=== PATIENT | female | born 1945 | race Caucasian/White ===

== ENCOUNTER → 2017-12-08 08:59 | Outpatient (BNVA) | payer MEDICARE, SELFPAY | PROVIDERS: PCP Family Medicine; Visit Provider Student in an Organized Health Care Education/Training Program | DX: I25.10 Atherosclerotic heart disease of native coronary artery without angina pectoris (principal); Z95.5 Presence of coronary angioplasty implant and graft; R05 Cough; I35.0 Nonrheumatic aortic (valve) stenosis; I10 Essential (primary) hypertension; E11.9 Type 2 diabetes mellitus without complications; Z79.4 Long term (current) use of insulin | CPT/HCPCS: 99214 ==

== ENCOUNTER 2017-12-21 02:15 | Outpatient (CLI) | payer MEDICARE, SELFPAY ==
[2017-12-21 11:02] LABS: CREATININE 0.91 mg/dL (0.55-1.02); Potassium 4.2 mmol/L (3.5-5.1)
[2017-12-21 11:10] LABS: Hemoglobin A1C 6.3 % (4.5-6.2)
[2017-12-21 11:21] LABS: Cholesterol 117 mg/dL (50-200); HDL Cholesterol 36 mg/dL (40-60); LDL CHOLESTEROL 68 mg/dL (<100); Triglyceride 96 mg/dL (30-150)
== END 2017-12-21 02:35 ==
PROVIDERS: Student in an Organized Health Care Education/Training Program; PCP Family Medicine; Visit Provider Family Medicine
DX: E11.9 Type 2 diabetes mellitus without complications (principal); I25.10 Atherosclerotic heart disease of native coronary artery without angina pectoris
CPT/HCPCS: 36415; 80061; 83721; 82565; 83036; 84132

== ENCOUNTER 2018-08-11 10:23 | Outpatient (CLI) | payer MEDICARE, SELFPAY ==
[2018-08-11 13:27] LABS: Hemoglobin A1C 9.3 % (4.5-6.2)
[2018-08-11 13:45] LABS: TSH (W/Ref FT4) 1.63 uIU/mL (0.358-3.74)
[2018-08-11 14:00] LABS: Microalb ug/mg Crea 17.8 ug/mg Cr
== END 2018-08-11 10:43 ==
PROVIDERS: PCP Family Medicine; Visit Provider Family Medicine
DX: E11.9 Type 2 diabetes mellitus without complications (principal); E03.9 Hypothyroidism, unspecified
CPT/HCPCS: 36415; 82043; 82570; 83036; 84443

== ENCOUNTER 2018-11-29 13:41 | Outpatient (REF) | payer MEDICARE, SELFPAY | END 2018-11-29 14:01 | LOC: LBN 13:41 | PROVIDERS: PCP Family Medicine; Visit Provider Obstetrics & Gynecology | DX: N76.0 Acute vaginitis (principal) | CPT/HCPCS: 87480; 87510; 87660 ==

== ENCOUNTER 2018-12-01 00:55 | Outpatient (CLI) | payer MEDICARE, SELFPAY ==
--- NOTE | 2018-12-01 09:40 | DI.MAMMO_ITS ---
SYMPTOMS/DIAGNOSIS: SCREENING, Z12.39 MAMMOGRAMS: Mammograms were interpreted according to the usual protocol including computer analysis with CAD system, tomosynthesis and C view imaging. The breasts are of moderate density with fairly symmetrical distribution of fibroglandular tissue. No dominant mass or clumped microcalcification is identified in either breast. Current examination is compared with the previous examination of September 2013 and there has been no gross interval change in appearance in comparison with the previous study. CONCLUSION: No specific evidence of malignancy at this time. Routine screening examinations are suggested at yearly intervals in this age group according to the ACS/ACR guidelines. Category 1, breast density category B. MQSA ASSESSMENT OF FINDINGS: Negative. Category 1. Patient will receive a letter notifying them of these results. BI-RADS category B. There are scattered areas of fibroglandular density.
== END 2018-12-01 01:15 ==
PROVIDERS: PCP Family Medicine; Visit Provider Obstetrics & Gynecology
DX: Z12.31 Encounter for screening mammogram for malignant neoplasm of breast (principal)
CPT/HCPCS: 77063; 77067

== ENCOUNTER → 2018-12-07 09:00 | Outpatient (BNVA) | payer MEDICARE, SELFPAY | PROVIDERS: PCP Family Medicine; Visit Provider Student in an Organized Health Care Education/Training Program | DX: I20.8 Other forms of angina pectoris (principal); Z95.5 Presence of coronary angioplasty implant and graft; I35.0 Nonrheumatic aortic (valve) stenosis; I10 Essential (primary) hypertension; E11.9 Type 2 diabetes mellitus without complications; Z79.4 Long term (current) use of insulin | CPT/HCPCS: 99214 ==

== ENCOUNTER 2018-12-30 08:36 | Outpatient (CLI) | payer MEDICARE, SELFPAY ==
[2018-12-30 11:05] LABS: CREATININE 1.26 mg/dL (0.55-1.02); Estimated GFR 41.51 (mL/min/1.73m2); Potassium 4.3 mmol/L (3.5-5.1)
[2018-12-30 11:45] LABS: Hemoglobin A1C 8.7 % (4.5-6.2)
== END 2018-12-30 08:56 ==
PROVIDERS: PCP Family Medicine; Visit Provider Family Medicine
DX: E11.9 Type 2 diabetes mellitus without complications (principal)
CPT/HCPCS: 36415; 82565; 83036; 84132

== ENCOUNTER 2019-07-26 11:03 | Outpatient (REF) | payer MEDICARE, SELFPAY | END 2019-07-26 11:23 | LOC: LBN 11:03 | PROVIDERS: PCP Family Medicine; Visit Provider Obstetrics & Gynecology | DX: B37.3 Candidiasis of vulva and vagina (principal) | CPT/HCPCS: 87480; 87510; 87660 ==

== ENCOUNTER 2019-08-30 10:54 | Outpatient (CLI) | payer MEDICARE, SELFPAY ==
--- NOTE | 2019-08-30 08:45 | DI.RAD_ITS ---
EXAM: XR HIP LT COMPLETE AP PELVIS CLINICAL HISTORY: bilateral hip pain. TECHNIQUE: 2D digital imaging was performed. COMPARISON: No exams were available for comparison FINDINGS: In the left hip, degenerative changes are present characterized by joint space narrowing, subchondral sclerosis and periarticular spurring. Similar findings are seen in the right hip. No acute fractur e or dislocation is present. Sacroiliac joints and symphysis pubis are intact. Vascular calcificati ons are seen in the soft tissues. IMPRESSION: Mild osteoarthritis of the hips bilaterally. DATA REPOSITORY: RADIATION DOSE DELIVERED:
== END 2019-08-30 11:14 ==
PROVIDERS: PCP Family Medicine; Referring Provider Family Medicine; Visit Provider Orthopaedic Surgery
DX: M25.551 Pain in right hip (principal); M25.552 Pain in left hip; M16.0 Bilateral primary osteoarthritis of hip; M70.61 Trochanteric bursitis, right hip; M70.62 Trochanteric bursitis, left hip; E11.9 Type 2 diabetes mellitus without complications; Z79.4 Long term (current) use of insulin; I10 Essential (primary) hypertension
CPT/HCPCS: 99203; 99214; 73502

== ENCOUNTER 2019-09-26 14:20 | Outpatient (REF) | payer MEDICARE, SELFPAY | END 2019-09-26 14:40 | LOC: LBN 14:20 | PROVIDERS: PCP Family Medicine; Visit Provider Obstetrics & Gynecology | DX: N89.8 Other specified noninflammatory disorders of vagina (principal) | CPT/HCPCS: 87480; 87510; 87660 ==

== ENCOUNTER → 2019-10-04 10:58 | Outpatient (BNVA) | payer MEDICARE, SELFPAY | PROVIDERS: PCP Family Medicine; Referring Provider Family Medicine; Visit Provider Orthopaedic Surgery | DX: M70.61 Trochanteric bursitis, right hip (principal); M70.62 Trochanteric bursitis, left hip; I10 Essential (primary) hypertension; E11.9 Type 2 diabetes mellitus without complications; Z79.4 Long term (current) use of insulin | CPT/HCPCS: 99213 ==

== ENCOUNTER 2019-11-13 00:42 | Outpatient (CLI) | payer MEDICARE, SELFPAY ==
--- NOTE | 2019-11-13 13:55 | DI.US_ITS ---
APPROVED REPORT EXAM: Comprehensive 2D, Doppler, and color-flow Echocardiogram Patient Location: Out-Patient Backhoe Operator: Wendy Guerrero RDCS (AE) Indications: Aortic Stenosis, CAD Other Information Study Quality: Adequate Conclusion Left Ventricle : The left ventricle is normal size. The left ventricular systolic function is normal. The left ventricular ejection fraction is within the normal range. There is normal left ventricular wall thickness. There is normal LV segmental wall motion. The left ventricular diastolic function is normal. LVEF is 54%. Right Ventricle : The right ventricle is normal size. The right ventricular systolic function is norm al. The RVSP is 22.1 mmHg. Atria : The left atrium size is normal. The right atrium size is normal. Aortic Valve : Aortic valve is calcified. Aortic valve is trileaflet. There is no aortic valvular vidal nosis. No aortic regurgitation is present. Mitral Valve : Mild mitral annular calcification. Trace to mild mitral regurgitation. No evidence of mitral valve stenosis. Great Vessels : The aortic root is normal in size. The ascending aorta is normal in size. Aortic arch is normal in caliber. Wall motion Left Ventricle The left ventricle is normal size. The left ventricular systolic function is normal. The left ventric ular ejection fraction is within the normal range. There is normal left ventricular wall thickness. T here is normal LV segmental wall motion. The left ventricular diastolic function is normal. There is no ventricular septal defect visualized. LVEF is 54%. Right Ventricle The right ventricle is normal size. The right ventricular systolic function is normal. The RVSP is 22 .1 mmHg. Atria The left atrium size is normal. The right atrium size is normal. The interatrial septum is intact wit h no evidence for an atrial septal defect. Aortic Valve Aortic valve is calcified. Aortic valve is trileaflet. There is no aortic valvular stenosis. No aorti c regurgitation is present. Mitral Valve Mild mitral annular calcification. No evidence of mitral valve stenosis. Trace to mild mitral regurgi tation. Tricuspid Valve The tricuspid valve is normal in structure. There is no tricuspid valve stenosis. Trace tricuspid reg urgitation. Pulmonic Valve The pulmonary valve is normal in structure. There is no pulmonic valvular stenosis. Trace pulmonic re gurgitation. Great Vessels The aortic root is normal in size. The ascending aorta is normal in size. Aortic arch is normal in ca liber. IVC is normal in size and collapses >50% with inspiration. Pericardium There is no pericardial effusion. 2D Dimensions IVSD d PLAX 0.95 cm F: 0.6-1.0 LV Vol A2C d MOD 66.7 mL LVPW d PLAX 0.95 cm F: 0.6 - 1.0 LV Vol A4C d MOD 80.1 mL LVID d PLAX 4.29 cm F: 3.8 - 5.2 LA vol/ BSA A2C s A-L 24.8 mL/m2 LVDs 3.10 cm F: 2.2 - 3.5 LA vol/ BSA A4C s A-L 18.0 mL/m2 Ao Root d 2.41 cm F: 2.7 - 3.3 LA Vol/ BSA Biplane s A-L 22.6 mL/m2 RA Area A4C 13.35 cm2 LA Area A4C s MOD 14.22 cm2 RA Vol/ BSA A4C s A-L 17.1 mL/m2 LA Area A2C s MOD 17.84 cm2 Ao Asc Diam d 3.07 cm F: 2.3 - 3.1 LV EF A4C MOD 54.0 % LV EF Teichholz 53.6 % LV EF A2C MOD 53.3 % LVEF (Parrish's) 53.33 % F: 54 - 74 LV EF Biplane MOD 53.3 % LV Volume 57.63 mL F: 46 - 106 SV 40.22 mL LV Volume Index 30.49 mL/m2 F: 29 - 61 SV Index 21.25 mL/m2 LV Vol Biplane MOD 75.4 mL FS 27.40 % M-Mode TAPSE 1.94 cm (M/F) >1.7 LV Diastology MV E' medial 0.060 (>0.07 m/s) E/A Ratio 0.9 LV E/e MED 13.85 (<14) MV E Vmax 0.84 (0.4-1.3 m/s) MV E' lateral 0.080 (>0.1 m/s) MV A Vmax 0.95 (0.4-1.3 m/s) LV E/e LAT 10.45 (<14) MV E/A Ratio 0.88 MV E/E' medial 13.86 MV E/E' lateral 10.47 Aortic Valve LVOT Area 3.37 cm2 AoV Area Vmax 1.58 cm2 LVOT Vmax 0.90 m/s AoV Area/ BSA (Vmax) 0.83 cm2/m2 LVOT Mean Luis. 0.64 m/s EVE Mean Luis. 1.41 cm2 LVOT Peak Grad 3.2 mmHg EVE Mean Luis. Index 0.74 cm2/m2 LVOT Mean Grad 1.8 mmHg LVOT VTI 0.207 m LVOT Diam s 2.05 cm AoV Vmax 1.92 m/s Velocity Ratio 0.46 AoV Mean Luis. 1.54 m/s AoV Peak Grad 14.8 mmHg LVOT SV 69.81 mL AoV Mean Grad 9.8 mmHg AoV VTI 0.474 m AoV Area VTI 1.47 cm2 AoV Area/ BSA (VTI) 0.78 cm/m2 Mitral Valve MV DT 232 (160-240 msec) MV PHT 67 msec MV Area PHT 3.27 cm2 Pulmonary Valve PV Vmax 0.95 (0.5-1.5 m/s) RVOT Peak Gr. 1.49 mmHg PV Peak Grad 3.6 mmHg RVOT Mean Gr. 0.85 mmHg PV Mean Grad 2.0 mmHg RVOT VTI 0.148 m PV VTI 0.224 m RVOT Vmax 0.61 m/s Tricuspid Valve TR Peak Grad 19.1 mmHg TR Vmax 2.19 m/s RA Pressure 3.00 mmHg RVSP (TR) 22.1 mmHg
== END 2019-11-13 01:02 ==
PROVIDERS: PCP Family Medicine; Visit Provider Internal Medicine Cardiovascular Disease
DX: I35.0 Nonrheumatic aortic (valve) stenosis (principal); I25.10 Atherosclerotic heart disease of native coronary artery without angina pectoris
CPT/HCPCS: 93306

== ENCOUNTER → 2019-12-04 10:56 | Outpatient (BNVA) | payer MEDICARE, SELFPAY | PROVIDERS: PCP Family Medicine; Visit Provider Internal Medicine Cardiovascular Disease | DX: I25.10 Atherosclerotic heart disease of native coronary artery without angina pectoris (principal); I35.0 Nonrheumatic aortic (valve) stenosis; I10 Essential (primary) hypertension; E11.9 Type 2 diabetes mellitus without complications; Z79.4 Long term (current) use of insulin | CPT/HCPCS: 99204; 99215 ==

== ENCOUNTER 2020-07-08 02:57 | Outpatient (CLI) | payer MEDICARE, SELFPAY ==
[2020-07-09 18:08] LABS: COVID-19 RT-PCR UVMMC Result Negative (Negative)
== END 2020-07-08 02:58 | disposition home or self-care (01) ==
LOC: LBO 02:58
PROVIDERS: PCP Family Medicine; Visit Provider Family Medicine
DX: Z20.822 Contact with and (suspected) exposure to COVID-19 (principal)
CPT/HCPCS: U0003; U0005

== ENCOUNTER → 2020-08-22 10:42 | Outpatient (BNVA) | payer MEDICARE, SELFPAY | PROVIDERS: PCP Family Medicine; Referring Provider Family Medicine; Visit Provider Student in an Organized Health Care Education/Training Program | DX: M70.61 Trochanteric bursitis, right hip (principal) | CPT/HCPCS: 20610; J1040 ==

== ENCOUNTER 2021-07-21 15:26 | Outpatient (CLI) | payer MEDICARE, SELFPAY ==
--- NOTE | 2021-07-21 14:45 | DI.RAD_ITS ---
Exam(s) XR KNEE RT 3V AP,LAT,TIO EXAM: XR KNEE RT 4V AP,LAT,TIO,PAT CLINICAL HISTORY: pain in knee. TECHNIQUE: 2D digital imaging was performed. Three views. COMPARISON: CR RIGHT KNEE LIMITED 1 OR 2 VIEW from 10/21/2011 FINDINGS: BONES: No acute fracture is present. No bony destructive lesion is seen. Patellar enthesophytes. Spu rring at articular aspect of patella. Mild spurring medial femoral tibial joint JOINTS: The knee is normally aligned. Minimal narrowing medial femoral tibial joint. No joint effus ion is seen. SOFT TISSUE: Vascular calcifications. Chondrocalcinosis projecting in region of menisci. IMPRESSION: Mild degenerative changes of the patellofemoral joint and medial femoral tibial joint. DATA REPOSITORY: RADIATION DOSE DELIVERED:
== END 2021-07-21 15:27 | disposition home or self-care (01) ==
LOC: DIORS 15:26
PROVIDERS: PCP Family Medicine; Referring Provider Family Medicine; Visit Provider Physician Assistant
DX: M25.561 Pain in right knee (principal)
CPT/HCPCS: 20610; 73562; J1040

== ENCOUNTER 2021-07-23 01:14 | Outpatient (CLI) | payer MEDICARE, SELFPAY ==
[2021-07-23 12:49] LABS: Anion Gap 11.6 mmol/L (3-11); BUN 22 mg/dL (7-18); CO2 24.4 mmol/L (21.0-32.0); Calcium 9.1 mg/dL (8.5-10.1); Calculated LDL 76 mg/dL (<100); Chloride 106 mmol/L (98-107); Cholesterol 134 mg/dL (<200); Estimated GFR 53.76 (mL/min/1.73m2); Glucose 174 mg/dL (74-106); HDL Cholesterol 44 mg/dL (40-60); Potassium 4.6 mmol/L (3.5-5.1); Sodium 142 mmol/L (136-145); Triglyceride 72 mg/dL (<150)
[2021-07-23 12:51] LABS: Hemoglobin A1C 7.5 % (<5.7)
== END 2021-07-23 01:15 | disposition home or self-care (01) ==
LOC: LOS 01:14
PROVIDERS: PCP Family Medicine; Visit Provider Family Medicine
DX: E78.5 Hyperlipidemia, unspecified (principal); E87.1 Hypo-osmolality and hyponatremia; R73.9 Hyperglycemia, unspecified
CPT/HCPCS: 36415; 80048; 80061; 83036

== ENCOUNTER 2021-08-11 06:30 | Day surgery (SDC) | payer MEDICARE, SELFPAY ==
[2021-08-11 06:35] VITALS: BP 170/65; PULSE 62; RESP 20; TEMP 36; O2SAT 100
--- NOTE | 2021-08-11 06:48 | ANES.PREOP_ITS ---
General Info Date of Service Date Performed: 08/11/21 Height: 5 ft 3.5 in Weight: 80.2 kg Body Mass Index (BMI): 30.8 Surgical Procedure: Operation Date: 08/11/21 07:40 Proposed Procedure Side Surgeon p Cataract Extraction with IOL Implant Left Guevara Zamora MD Meds Allergies and Home Medications Home Medication Medication Instructions Recorded aspirin 81 mg tablet,delayed 81 mg PO DAILY 07/29/12 release (Aspir-) nitroglycerin 0.4 mg sublingual 0.4 mg sublingual as direct 07/31/14 tablet blood sugar diagnostic (OneTouch #200 strips 07/03/16 Ultra Test strips) pen needle, diabetic 31 gauge x ##200 07/03/1603/24 blood sugar diagnostic (OneTouch #100 ea 07/24/20 Ultra Blue Test Strip) blood-glucose meter (Quantock BreweryTouch #1 ea 07/24/20 Ultra2 Meter) OneTouch UltraSoft Lancets #100 ea 10/18/20 (lancets) lancets 33 gauge (OneTouch Delica #100 ea 10/18/20 Lancets) insulin glargine 100 unit/mL (3 50 - 60 unit (0.5 - 0.6 mL) subcut 11/26/20 mL) subcutaneous pen (Basaglar DAILY #45 mL KwikPen U-100 Insulin) levothyroxine 75 mcg tablet 75 mcg PO DAILY #90 tab-caps 11/26/20 clobetasol 0.05 % topical cream 1 applic topical .COMPLEX #30 grams 12/11/20 citalopram 20 mg tablet (Celexa) 20 mg PO DAILY #90 tab-caps 12/25/20 metformin 500 mg tablet 500 mg PO BID #180 tabs 12/25/20 atorvastatin 40 mg tablet 40 mg PO DAILY #90 tab-caps 04/16/21 lisinopril 20 mg tablet 20 mg PO DAILY #90 tabs 07/14/21 zolpidem 5 mg tablet (Ambien) 5 mg PO hs prn #90 tab-caps 07/16/21 Current Visit Medications: Current Medications Generic Name Dose Route Start Last Admin Trade Name Freq PRN Reason Stop Dose Admin Acetaminophen 1,000 mg 08/11/21 06:00 Acetaminophen 500 Mg Tab PO Q4H PRN PRN Miscellaneous Medication 0 ml 08/11/21 06:00 Prednisolone 1%, Moxifloxacin 0.5%, Nepafenac 0.1% 5ml Btl OS DIRECTED [facility] Miscellaneous Medication 0 ml 08/11/21 06:00 Tropicam./Phenyleph. (1/2.5%) 5 Ml Btl OS DIRECTED [facility] Tetracaine HCl 0 ml 08/11/21 06:00 Tetracaine 0.5% 4 Ml Btl OS DIRECTED [facility] PFSH Active Problems Active Problems: Problem Status Onset Code Cortical cataract of left eye H26.9 Nuclear sclerotic cataract of left eye H25.12 Aortic valve stenosis 02/19/04 I35.0 Atrophic vaginitis 11/23/13 N95.2 CAD (coronary artery disease) I25.10 Diabetes mellitus 08/01/12 E11.9 Essential hypertension 12/19/12 I10 Hyperlipidemia 08/01/12 E78.5 Hypothyroidism 11/19/09 E03.9 Increased BMI R63.8 Diarrhea due to drug K52.1 Depression F32.9 Vaginal candidiasis B37.3 Bacterial vaginosis N76.0, B96.89 Greater trochanteric bursitis of both hips M70.61, M70.62 Vaginal discharge N89.8 Lichen sclerosus L90.0 Trochanteric bursitis, right hip M70.61 Osteoarthritis of right knee M17.11 Medical History Medical History Benign hypertension Depression Diabetes mellitus, type 2 History of tobacco use Hyperlipidemia Shoulder pain (10/25/12) left; MRI=no rotator cuff tear; AC arthritis Vaginal atrophy Surgical History Surgical History Dilation and curettage History of bilateral ligation of fallopian tubes History of shoulder surgery KNEE REPAIR (~06/2011) Injection. MINISCUS TRIM Ligation of fallopian tube shoulder surgery Status post dilation and curettage Status post knee surgery Status post tonsillectomy and adenoidectomy St[place]05/16[place] [facility] [place] [facility] [place] F/U with cardiology 12/04/19 Tonsillectomy and adenoidectomy Tobacco Smoking/Tobacco Use Status: Former Tobacco Use Passive smoking exposure: No Alcohol Alcohol Intake: current Alcohol intake frequency: holidays/special occasions only Alcohol type: wine Substance Use Substance use: Never Substance use type: does not use Prental History History 3 Para 2 Hx # Term Pregnancies Multiple births Hx # Pregnancies Ectopic pregnancies AB induced Hx Number of Living Children AB spontaneous Vital Signs and Lab Results Vital Signs Most Recent Vital Signs in EMR: Most Recent Vital Signs Temp Pulse Resp BP Pulse Ox 36.0 C L 62 20 170/65 H 100 08/11/21 06:35 08/11/21 06:35 08/11/21 06:35 08/11/21 06:35 08/11/21 06:35 Lab Results Blood Type / Crossmatch: No Data to Display Complete Blood Count: No Data to Display Complete Metabolic Panel: Sodium Level 142 mmol/L (136-145) 07/23/21 09:14 Potassium Level 4.6 mmol/L (3.5-5.1) 07/23/21 09:14 Chloride Level 106 mmol/L (98-107) 07/23/21 09:14 Carbon Dioxide Level 24.4 mmol/L (21.0-32.0) 07/23/21 09:14 Blood Urea Nitrogen 22 mg/dL (7-18) H 07/23/21 09:14 Creatinine 1.0 mg/dL (0.55-1.02) 07/23/21 09:14 Estimated GFR/1.73 m2 53.76 (mL/min/1.73m2) 07/23/21 09:14 Calcium Level 9.1 mg/dL (8.5-10.1) 07/23/21 09:14 Glucose Level 174 mg/dL (74-106) H 07/23/21 09:14 Hemoglobin A1c 7.5 % (<5.7) H 07/23/21 09:14 Liver Function Panel: No Data to Display Coagulation Panel: No Data to Display Cardiac Panel: No Data to Display Arterial Blood Gas: No Data to Display Venous Blood Gas: No Data to Display Pancreas Panel: No Data to Display Thyroid Panel: No Data to Display Infectious Disease: No Data to Display Blood Cultures: No Data to Display Toxicology Panel: No Data to Display Imaging and Studies Imaging and Studies Study information below may be from another EMR and interpreted by another provider. Please see original notes in EMR for more complete details. Stress Test Summary: Date of Exam: 10/07/16 Impressions: Normal study after maximal exercise without reproduction of symptoms. Summary: 1. Myocardial perfusion imaging: No myocardial perfusion defects noted. 2. The calculated left ventricular ejection fraction after stress: 50%. LV global systolic function is low normal. No left ventricular regional motion abnormality. 3. Stress ECG conclusions: Parra treadmill score: 7. This score predicts a low risk of cardiac events. 4. Stress: The target heart rate was achieved. There is a normal resting blood pressure with an appropriate response to stress. The patient experienced no chest pain during stress. Exercise capacity is above normal for age. Echocardiogram Summary: Date of Exam: 11/13/19ex: F Admission Date: 11/13/19 : 1945 Age: 74 Exam(s) a US:US echocardiogram APPROVED REPORT EXAM: Comprehensive 2D, Doppler, and color-flow Echocardiogram Patient Location: Out-Patient [employer]: Wendy Guerrero RDCS (AE) Indications: Aortic Stenosis, CAD Other Information Study Quality: Adequate Conclusion Left Ventricle : The left ventricle is normal size. The left ventricular systolic function is normal. The left ventricular ejection fraction is within the normal range. There is normal left ventricular wall thickness. There is normal LV segmental wall motion. The left ventricular diastolic function is normal. LVEF is 54%. Right Ventricle : The right ventricle is normal size. The right ventricular systolic function is normal. The RVSP is 22.1 mmHg. Atria : The left atrium size is normal. The right atrium size is normal. Aortic Valve : Aortic valve is calcified. Aortic valve is trileaflet. There is no aortic valvular stenosis. No aortic regurgitation is present. Mitral Valve : Mild mitral annular calcification. Trace to mild mitral regurgitation. No evidence of mitral valve stenosis. Great Vessels : The aortic root is normal in size. The ascending aorta is normal in size. Aortic arch is normal in caliber. Anesthesia Assessment and Plan Anesthesia History Personal History: No History of Anesthesia Complications Family History: No Family History of Anesthesia Complications Exercise Tolerance Exercise Tolerance: Metabolic Equivalents>4 Pertinent Negatives Pertinent Negatives: No Symptoms of GERD Cardiac & Pulmonary Exam Cardiac Exam: Normal S1/S2 Heart Sounds Pulmonary Exam: Clear Bilateral Breath Sounds Implantable Cardiac Device Does patient have a Pacemaker or an ICD?: No Airway Exam Known Difficult Airway: No Mallampati Class: 2 Mouth Opening: Normal (> 3cm) Thyromental Distance: Greater than 3 cm Neck Range of Motion: Full ROM Neck Circumference: Normal Teeth Condition: Removable Dentures/Plates Upper ASA Classification ASA Score: ASA 3 Emergency Case?: No NPO Status NPO Status: NPO Clears >2 hours, Solids >8 hours Anesthesia Plan Resuscitation Status: Full Code Anesthesia Technique: MAC Anesthesia Airway Planned: Natural Airway Monitors Used: Standard Monitors Preoperative Comments:: History of stents, 2 at [facility] and one at [facility] [place] [facility] [place]. Will look for those records.
[2021-08-11] MEDS: Tropicam./Phenyleph. (1/2.5%) 5 ML BTL OS ×3 (06:49→07:00)
[2021-08-11 07:20] VITALS: BMI 30.8
[2021-08-11] MEDS: Tetracaine 0.5% 4 ML BTL OS (07:36)
[2021-08-11] MEDS: Povidone-Iodine Ophth 30 ML BTL (07:40)
[2021-08-11] MEDS: Lidocaine 2% Jelly 6 ML SYR (07:43)
[2021-08-11] MEDS: Trypan Blue 0.06% 0.5 ML SYR (07:44)
[2021-08-11] MEDS: Balanced Salt Soln.-PLUS 500 ML BAG (07:44)
[2021-08-11] MEDS: Duovisc Viscoelastic System EACH 1 EACH (07:44)
[2021-08-11 08:15] VITALS: BP 139/63; PULSE 60; RESP 20; TEMP 36.2; O2SAT 99
--- NOTE | 2021-08-11 08:18 | PDOC.DSDIS_ITS ---
Discharge Plan Disposition Patient Disposition: HOME Condition: Good Discharge Details Attending Provider: Guevara Zamora Primary Care Provider: Milo Elkins. Home Meds and New Rx's Prescriptions: No Action (DME) blood-glucose meter [OneTouch Ultra2 Meter] [facility] [place] See Rx Instructions .ROUTE .MEDSUPPLY Qty: 1 0RF Rx Instructions: test once/day (DME) OneTouch Ultra Blue Test Strip Strip See Rx Instructions .ROUTE .MEDSUPPLY Qty: 100 3RF Rx Instructions: test once/day citalopram [Celexa] 20 mg tablet 20 mg PO DAILY Qty: 90 3RF metformin 500 mg tablet 500 mg PO BID Qty: 180 3RF Rx Instructions: note lower dose zolpidem [Ambien] 5 mg tablet 5 mg PO hs prn Qty: 90 1RF aspirin [Aspir-81] 81 MG tablet,delayed release (DR/EC) 81 mg PO DAILY nitroglycerin 0.4 MG tablet, sublingual 0.4 mg Sublingual as direct (DME) OneTouch Ultra Test 1 EACH strip 1 strip Miscellaneous BID Qty: 200 Rx Instructions: DX:E11.9 on insulin ULTRA 2 (DME) pen needle, diabetic 1 EACH needle 1 ndl SQ TID Qty: 200 Label Comments: Reports not taking per MD Rx Instructions: DX:250. B/D INSULIN PEN NEEDLE 31G X 3/16 (DME) lancets [OneTouch UltraSoft Lancets] [facility] [place] See Rx Instructions .MEDSUPPLY Qty: 100 4RF Rx Instructions: Check blood sugar daily (DME) lancets [OneTouch Delica Lancets] [facility] See Rx Instructions .ROUTE .MEDSUPPLY Qty: 100 3RF Rx Instructions: test once/day Basaglar KwikPen U-100 Insulin 100 unit/mL (3 mL) insulin pen 50 - 60 unit subcut DAILY Qty: 45 3RF levothyroxine 75 mcg tablet 75 mcg PO DAILY Qty: 90 4RF clobetasol 0.05 % cream 1 applic TP .COMPLEX Qty: 30 0RF Rx Instructions: 1 applic topical 3 times weekly at bedtime.; atorvastatin 40 mg tablet 40 mg PO DAILY Qty: 90 3RF lisinopril 20 mg tablet 20 mg PO DAILY Qty: 90 3RF Discharge Instructions Stand Alone Forms: Post-op Topical Cataract, Farnaz Gambino (DSU) Discharge Orders Discharge Orders: Discharge Order (Routine); Ordered 08/11/21 Ordered By: Guevara Zamora DS: Diagnosis Discharge Diagnosis (1) Cortical cataract of left eye: Status: Resolved (2) Nuclear sclerotic cataract of left eye: Status: Resolved
--- NOTE | 2021-08-11 08:19 | ROE_ITS ---
Date of service: 08/11/21 Time of Service: 07:19 Operative Note Operative Note DATE OF PROCEDURE: 08/11/21 PRE-OP DIAGNOSIS: Nuclear/cortical cataract, left eye Poor red reflex, left eye secondary to cataract POST-OP DIAGNOSIS: same PROCEDURE: Cataract extraction using phacoemulsification with intraocular lens implant, left eye, using capsular staining with Vision Blue SURGEON: Guevara Zamora ANESTHESIA TYPE: Local By Surgeon and MAC Refer to Anesthesia Record COMPLICATIONS: None Patient was transported to: same day Patient's condition: stable Implants: Jose and Jose / [employer] Tecnis [id number] Indications: Progressive decreased vision due to cataract, left eye, with poor red reflex Procedure Description: CATARACT SURGERY OPERATIVE REPORT PREOPERATIVE DIAGNOSIS: 1. Nuclear/cortical cataract, left eye 2. Poor red reflex secondary to #1 POSTOPERATIVE DIAGNOSIS: Same OPERATION: 1. Cataract extraction using phacoemulsification with posterior chamber intraocular lens implant, left eye. 2. Capsular staining with Vision Blue IOL: IOL Oracle Database Architect/Model: Jose & Jose / MANUEL Tecnis [id number] IOL Power: + 20.0 diopters IOL Serial Number: [id number] Optic Diameter: 6.0 mm Haptic/Overall Diameter: 13.0 mm PHACO INFO: Jamar Centurion Vision System with OZil and Active Fluidics Cumulative Dispersed Energy (CDE): 23.82 seconds SURGEON: Guevara Zamora MD, NAVIN ANESTHESIA: Monitored A [facility] ([facility] [place] with local sub-tenon's anesthetic infiltration COMPLICATIONS: None SPECIMENS: None INDICATIONS FOR PROCEDURE: The patient is a 76-year-old lady with history of left esotropia and amblyopia who has developed a significant nuclear and cortical cataract. She has pretty undergone cataract surgery elsewhere in the right eye. She now presents for cataract surgery in the left eye, understanding that postoperative visual acuity will be limited by the presence of her pre-existing amblyopia. PROCEDURE: The correct surgical eye was identified and marked as the left eye and the pupil was dilated in the preoperative area using mydriatics and cycloplegics. The dilated pupil size was 7.0 mm. She elected to proceed without oral sedation. The patient was brought to the operating room where cardiopulmonary monitoring was instituted and surgical time-out was performed, confirming the correct operative eye and IOL power. Topical anesthesia was administered and ophthalmic povidone-iodine 5% was instilled into the conjunctival fornices. Lidocaine gel was applied to the cornea and the henrry-ocular area was prepped with Betadine 10% solution and draped in the usual sterile fashion for intraocular surgery, including an aperture drape. A Tegaderm transparent film dressing was cut in half and used to cover the lashes and lid margins. Care was taken to sequester the lashes and lid margins under the Tegaderm dressing. A lid speculum was placed between the lids of the operative eye and the Jamar Lux[employer] Revalia operating microscope was maneuvered into position. Moira scissors were then used to make a conjunctival buttonhole approximately 6mm posterior to the limbus in the inferonasal quadrant. Blunt dissection was carried out to expose bare sclera, and a blunt-tipped sub-tenon?s anesthesia cannula was introduced and passed posteriorly along the globe where non- preserved plain lidocaine was injected into posterior sub-Tenon?s space. A sideport knife was used to make a paracentesis port superiorly/superiortemporally. Intraocular phenylephrine/lidocaine was injected int the anterior chamber.. Air was then injected into the anterior chamber, followed by Vision Blue, which was painted over the anterior capsule and then irrigated out using BSS. The anterior chamber was filled with viscoelastic. A 2.4 mm keratome knife was used to create a 2-plane near clear corneal tunnel extending approximately 2 mm into clear cornea temporally. A flap was raised on the anterior capsule and capsulorhexis forceps were used to complete a continuous curvilinear capsulorhexis of 4.8 mm. The anterior chamber was noted to be quite deep with a soft globe. Balanced salt solution was then used to perform cortical cleaving hydrodissection and nuclear hydrodelineation until the lens could be freely rotated within the capsular bag. The lens nucleus was then disassembled and removed within the capsular bag and iris plane using phacoemulsification. Nuclear splitters were used to aid in cracking the nucleus into 2 heminuclei. Residual cortical material was removed using the 45-degree angled silicone I/A tip with 0.3mm port. The posterior capsule was carefully polished to remove as much residual lens epithelial cells as safely possible. The capsular bag was then inflated and the anterior chamber deepened with viscoelastic. The lens implant described above was inserted into the capsular bag using the MANUEL [place] Injector. A Kuglen hook was used to dial the IOL into position. Residual viscoelastic was then removed first from posterior to the IOL, then from the anterior chamber using the I/A handpiece. The lens implant was noted to center nicely within the capsular bag. The incisions were stromally hydrated, and the anterior chamber was reformed using BSS. Then 0.5cc of moxifloxacin 1.0mg/ml were injected into the capsular bag and anterior chamber. The incisions were checked with a Weck spear and found to be secure. Several drops of ophthalmic povidone-iodine 5% were then applied to the eye followed by two drops of Imprimis combination prednisolone/moxifloxacin/nepafenac solution. The drapes were removed and a clear plastic protective eye shield was placed over the eye. The patient was then returned to Same Day Surgery in stable condition.
--- NOTE | 2021-08-11 08:35 | W.ANESPOSTOP ---
Postoperative Evaluation Date, Time and Location Date Performed: 08/11/21 Time Performed: 07:36 Patient Location: Day Surgery Unit Vital Signs Most Recent Imported Vital Signs: Most Recent Vital Signs Temp Pulse Resp BP Pulse Ox 36.2 C L 60 20 139/63 99 08/11/21 08:15 08/11/21 08:15 08/11/21 08:15 08/11/21 08:15 08/11/21 08:15 Pain Score Most Recent Pain Score: Most Recent Pain Score Pain Level 0 08/11/21 08:15 Assessment Mental Status: Awake (Alert & Oriented to Patient Baseline) Airway and Respiratory Function: Patent airway with normal (patient baseline) respiratory exam Cardiovascular Function: Hemodynamically Stable Hydration Status: Adequately Hydrated Nausea & Vomiting: No Nausea or Vomiting Pain: Pt. Denies Any Pain Peripheral Nerve Block: Patient did not receive a nerve block
== END 2021-08-11 08:45 | disposition home or self-care (01) ==
PROVIDERS: PCP Family Medicine; Visit Provider Ophthalmology
PROC: (CPT 66984; principal; 2021-08-11 07:30)
DX: H25.12 Age-related nuclear cataract, left eye (principal); E11.9 Type 2 diabetes mellitus without complications; Z79.84 Long term (current) use of oral hypoglycemic drugs; Z79.4 Long term (current) use of insulin; I10 Essential (primary) hypertension
CPT/HCPCS: 66984; V2632

== ENCOUNTER → 2021-09-15 13:38 | Outpatient (BNVA) | payer MEDICARE, SELFPAY | PROVIDERS: PCP Family Medicine; Referring Provider Family Medicine; Visit Provider Student in an Organized Health Care Education/Training Program | DX: M70.51 Other bursitis of knee, right knee (principal) | CPT/HCPCS: 20610; J1030 ==

== ENCOUNTER 2022-08-04 03:02 | Outpatient (CLI) | payer MEDICARE, SELFPAY ==
[2022-08-04 13:00] LABS: Hemoglobin A1C 9.9 % (<5.7)
[2022-08-04 13:13] LABS: Anion Gap 13.3 mmol/L (3-11); BUN 29 mg/dL (7-18); CO2 22.7 mmol/L (21.0-32.0); CREATININE 1.3 mg/dL (0.55-1.02); Calcium 9.5 mg/dL (8.5-10.1); Calculated LDL 56 mg/dL (<100); Chloride 104 mmol/L (98-107); Cholesterol 113 mg/dL (<200); Estimated GFR 42.09 (mL/min/1.73m2); Glucose 219 mg/dL (74-106); HDL Cholesterol 36 mg/dL (40-60); Potassium 4.5 mmol/L (3.5-5.1); Sodium 140 mmol/L (136-145); Triglyceride 107 mg/dL (<150)
== END 2022-08-04 03:03 | disposition home or self-care (01) ==
LOC: LOS 03:02
PROVIDERS: PCP Family Medicine; Visit Provider Family Medicine
DX: E87.1 Hypo-osmolality and hyponatremia (principal); E78.5 Hyperlipidemia, unspecified; E11.51 Type 2 diabetes mellitus with diabetic peripheral angiopathy without gangrene; I70.209 Unspecified atherosclerosis of native arteries of extremities, unspecified extremity; E03.9 Hypothyroidism, unspecified
CPT/HCPCS: 36415; 80048; 80061; 83036; 84443

== ENCOUNTER 2023-07-14 10:48 | Outpatient (CLI) | payer MEDICARE, SELFPAY ==
--- NOTE | 2023-07-14 10:30 | DI.RAD_ITS ---
Exam(s) XR SHOULDER RT COMPLETE 2+V EXAM: XR SHOULDER RT COMPLETE 2+V CLINICAL HISTORY: RIGHT SHOULDER PAIN. TECHNIQUE: 2D digital imaging was performed of the right shoulder. Two images were obtained. Grash ey and axillary views were obtained. COMPARISON: CR RIGHT SHOULDER COMPLETE from 07/25/2014 FINDINGS: BONES: No acute fracture is present. No bony destructive lesion is seen. JOINTS: No dislocation present. There are degenerative changes seen at the acromioclavicular joint. The glenohumeral joint is well maintained. SOFT TISSUE: The visualized lungs are clear. IMPRESSION: Degenerative changes of the AC joint. DATA REPOSITORY: RADIATION DOSE DELIVERED:
== END 2023-07-14 10:49 | disposition home or self-care (01) ==
LOC: DIORS 10:48
PROVIDERS: PCP Family Medicine; Referring Provider Family Medicine; Visit Provider Student in an Organized Health Care Education/Training Program
DX: M75.101 Unspecified rotator cuff tear or rupture of right shoulder, not specified as traumatic; M65.341 Trigger finger, right ring finger; M72.0 Palmar fascial fibromatosis [Dupuytren]; M18.11 Unilateral primary osteoarthritis of first carpometacarpal joint, right hand
CPT/HCPCS: 20610; J1010; 73030

== ENCOUNTER 2023-08-12 09:20 | Day surgery (SDC) | payer MEDICARE, SELFPAY ==
--- NOTE | 2023-08-12 07:13 | W.PM.DSUDISC ---
Date of service: 08/12/23 Time of Service: 14:00 Discharge Plan Disposition Patient Disposition: Home Condition: Stable Discharge Details Attending Provider: Esau Walsh Primary Care Provider: Milo Elkins Home Meds and New Rx's Prescriptions: Continued aspirin [Aspir-81] 81 MG tablet,delayed release (DR/EC) 81 mg PO DAILY nitroglycerin 0.4 MG tablet, sublingual 0.4 mg Sublingual as direct (DME) OneTouch Ultra Test 1 EACH strip 1 strip Miscellaneous BID Qty: 200 Rx Instructions: DX:E11.9 on insulin ULTRA 2 (DME) lancets [OneTouch UltraSoft Lancets[place] [facility] [place] .MEDSUPPLY Qty: 100 4RF Rx Instructions: Check blood sugar daily (DME) lancets [OneTouch Delica Lancets] 33 gauge misc See Rx Instructions .ROUTE .MEDSUPPLY Qty: 100 3RF Rx Instructions: test once/day metformin 500 mg tablet 500 mg PO BID Qty: 180 3RF Rx Instructions: note lower dose lisinopril 20 mg tablet 20 mg PO DAILY Qty: 90 3RF (DME) blood sugar diagnostic Strip See Rx Instructions .ROUTE .MEDSUPPLY Qty: 100 3RF Rx Instructions: test once/day (DME) pen needle, diabetic 31 gauge x 1/3 needle 1 ndl SQ TID Qty: 200 3RF Rx Instructions: DX:250. B/D INSULIN PEN NEEDLE 31G X 3/16 test twice/day (DME) blood-glucose meter [OneTouch Ultra2 Meter] [facility] [place] .ROUTE .MEDSUPPLY Qty: 1 0RF Rx Instructions: test once/day citalopram [Celexa] 20 mg tablet 20 mg PO DAILY Qty: 90 3RF insulin glargine [Basaglar KwikPen U-100 Insulin] 100 unit/mL (3 mL) insulin pen 50 - 60 unit subcut DAILY Qty: 45 3RF levothyroxine 75 mcg tablet 75 mcg PO DAILY Qty: 90 4RF zolpidem [Ambien] 5 mg tablet 5 mg PO hs prn Qty: 90 1RF atorvastatin 40 mg tablet 40 mg PO DAILY Qty: 90 3RF Discharge Instructions Additional Instructions: Surgery: Right ring finger trigger release Activity: Protect hand for a few weeks. Gently increase finger motion and hand gripping to prevent stiffness. Recommend elevation to minimize swelling and discomfort. Prescriptions: None Resume home medicines, use [id number]-ijwcduc Tylenol (acetaminophen) as needed for mild pain and ibuprofen (Motrin) or naproxen (Aleve) as needed for moderate to severe pain and swelling. Dressings: Leave dressing in place for 3 days. May then remove and leave open to air or cover incision with Band-Aid. May get wet after 5 days. Follow-up: 10-[address] Walsh Please call the office during business hours with any questions or concerns. Stand Alone Forms: Farnaz Gambino (DSU) Discharge Orders Discharge Orders: Discharge Order (Routine); Ordered 08/12/23 Ordered By: Alan Reynolds DS: Diagnosis Discharge Diagnosis (1) Trigger finger, right ring finger: Status: Acute
--- NOTE | 2023-08-12 07:26 | ROE_ITS ---
Date of service: 08/12/23 Time of Service: 11:00 Operative Note Operative Note DATE OF PROCEDURE: 08/12/23 PRE-OP DIAGNOSIS: Right ring trigger finger PROCEDURE: Right ring finger trigger release, CPT# 74704 SURGEON: Esau Walsh GEOTECHNICAL INTERN: None None ANESTHESIA TYPE: Local By Surgeon Refer to Anesthesia Record ESTIMATED BLOOD LOSS: 1 TOURNIQUET TIME: 0 COMPLICATIONS: None Patient was transported to: same day Patient's condition: stable Indications: Please see complete medical record for details. Procedure Description: In the operating room, the patient was positioned supine on the stretcher. All bony prominences were padded. Preoperative antibiotics were omitted. The correct patient, procedure, and side of the procedure were all verified prior to beginning. Local anesthesia was induced about the site with 10cc of 1% lidocaine containing epinephrine buffered with 1 cc of sodium bicarbonate. The Right hand was prepped and draped in the usual sterile fashion. Proper analgesia was confirmed. A small volar longitudinal approach was made overlying the ring finger MCP joint. Soft tissues were swept to the sides, some mild subcutaneous skin to tendon sheath likely Dupuytren's contracture was released, and retracted to expose the A1 jaden. The release was started centrally with a knife and completed at the proximal and distal margins with tenotomy scissors. Care was taken to protect the flexor tendons. The tendons were inspected and showed mild bulbous degeneration and moderate tenosynovitis, but no significant tearing. Appropriate flexor tendon excursion was confirmed. The patient readily demonstrated full range of motion of the finger without triggering. The small incision was irrigated and then dried. Hemostasis was appropriate. The incision was closed using 3-0 nylon in a horizontal mattress fashion. Xeroform was applied followed by gauze and the hand was gently compressed with an Andre bandage. The patient tolerated local anesthesia without complication and was transferred out of the operating room in a stable condition.
[2023-08-12 10:09] VITALS: BP 122/58; PULSE 63; RESP 18; TEMP 36.3; O2SAT 99
[2023-08-12] MEDS: Sodium Bicarbonate 50 MEQ/50 ML VIAL (11:21)
[2023-08-12] MEDS: Lidocaine 1% Multi-Dose W/EPI 1/100,000 50 ML VIAL (11:21)
[2023-08-12 11:35] VITALS: BP 125/59; PULSE 58; RESP 18; TEMP 36.1; O2SAT 100
== END 2023-08-12 11:56 | disposition home or self-care (01) ==
LOC: SUR 09:20
PROVIDERS: PCP Family Medicine; Visit Provider Student in an Organized Health Care Education/Training Program
PROC: (CPT 26055; principal; 2023-08-12 10:45)
DX: M65.341 Trigger finger, right ring finger (principal)
CPT/HCPCS: 26055; J2004

== ENCOUNTER → 2023-08-24 10:29 | Outpatient (BNVA) | payer MEDICARE, SELFPAY | PROVIDERS: PCP Family Medicine; Referring Provider Family Medicine; Visit Provider Student in an Organized Health Care Education/Training Program | DX: Z47.89 Encounter for other orthopedic aftercare (principal); M65.341 Trigger finger, right ring finger; M72.0 Palmar fascial fibromatosis [Dupuytren] ==

== ENCOUNTER → 2023-09-24 00:31 | Outpatient (CLI) | payer MEDICARE, SELFPAY ==
--- NOTE | 2023-09-24 06:30 | DI.MRI_ITS ---
Exam(s) MR UPPER JOINT RT WO EXAM: MR UPPER JOINT RT WO CLINICAL HISTORY: RIGHT SHOULDER PAIN, ROTATOR CUFF TEAR ARTHROPATHY RT SHOULDER TECHNIQUE: Multiplanar multisequence MRI of the shoulder was performed. COMPARISON: CR XR SHOULDER RT COMPLETE 2+V from 07/14/2023 FINDINGS: MARROW:There is no evidence of fracture, Hill-Sachs deformity, nor ominous osseous lesions. GLENOHUMERAL JOINT: No joint effusion nor obvious loose intra-articular bodies. No chondral defects. No osteophytes. No degenerative subarticular cysts. ROTATOR CUFF MECHANISM: AC JOINT/ACROMIUM: Moderate degenerative changes in the AC joint. Mild impingement noted at this lev el.. There is no evidence of os acromiale. Supraspinatus: Exhibits tendinitis-tendinosis signal and there is an area of full-thickness tearing a t conjoined insertional region. Some fluid is noted in the subacromial-subdeltoid bursa. No muscle atrophy. Infraspinatus: Exhibits tendinitis signal with tearing as above at the conjoint insertional region. No muscle atrophy. Teres Minor: Intact. No evidence of tear nor muscle atrophy. Subscapularis/anterior cuff: Exhibits thickening and tendinosis signal. No full-thickness tear. BICEPS TENDON: Exhibits normal position within the intertubercular groove. However, the intra-articu lar aspect of the tendon is attenuated. No tenosynovitis. LABRUM: No labral tear identified. No evidence of paralabral cyst. QUADRILATERAL SPACE: No evidence of mass in the region of the axillary nerve and dorsal circumflex hu meral vessels. Visualized triceps muscle at this level appears unremarkable. IMPRESSION: 1. There is significant tendinitis/tendinosis findings in the supraspinatus, infraspinatus, and subsc apularis. There is an area of full-thickness tearing of the rotator cuff tendon at the conjoined ins ertional aspect of the supra and infraspinatus. No significant retraction of the musculotendinous ju nctions. No muscle atrophy. There is some fluid in the subacromial-subdeltoid bursa. 2. There is significant thinning of the intra-articular aspect of the biceps tendon. The thickness o f the tendon within the intra-articular groove appears normal and nondisplaced. 3. No obvious labral tears. 4. Moderate degenerative changes noted in the acromioclavicular joint. DATA REPOSITORY:
== END ==
PROVIDERS: PCP Family Medicine; Visit Provider Student in an Organized Health Care Education/Training Program
DX: M75.101 Unspecified rotator cuff tear or rupture of right shoulder, not specified as traumatic (principal); M12.811 Other specific arthropathies, not elsewhere classified, right shoulder
CPT/HCPCS: 73221

== ENCOUNTER → 2023-10-05 10:48 | Outpatient (BNVA) | payer MEDICARE, SELFPAY | PROVIDERS: PCP Family Medicine; Referring Provider Family Medicine; Visit Provider Student in an Organized Health Care Education/Training Program | DX: M75.101 Unspecified rotator cuff tear or rupture of right shoulder, not specified as traumatic (principal); M12.811 Other specific arthropathies, not elsewhere classified, right shoulder | CPT/HCPCS: 20610; J1010 ==

== ENCOUNTER 2024-08-09 02:55 | Outpatient (CLI) | payer MEDICARE, SELFPAY ==
[2024-08-09 12:19] LABS: HCT 40.5 % (36.0-46.0); HGB 13.5 g/dL (11.2-15.7); MCH 28.1 pg (27.0-33.0); MCHC 33.3 % (32.0-36.0); MCV 84 fL (80-95); MPV 11.6 fL (8.0-11.0); Platelet Count 167 10^3/uL (130-400); RDW 13.8 % (11.7-14.6); RDW-SD 42.6 fL; WBC 10.55 10^3/uL (4.4-10.8)
[2024-08-09 12:45] LABS: Anion Gap 10.5 mmol/L (3-11); BUN 29 mg/dL (7-18); CO2 23.5 mmol/L (21.0-32.0); CREATININE 1.3 mg/dL (0.55-1.02); Calcium 9.6 mg/dL (8.5-10.1); Chloride 105 mmol/L (98-107); Estimated GFR 41.57 (mL/min/1.73m2); Glucose 168 mg/dL (74-106); Potassium 4.3 mmol/L (3.5-5.1); Sodium 139 mmol/L (136-145); TSH (W/Ref FT4) 3.69 uIU/mL (0.36-3.74)
== END 2024-08-09 02:56 | disposition home or self-care (01) ==
PROVIDERS: PCP Family Medicine; Visit Provider Family Medicine
DX: E03.9 Hypothyroidism, unspecified (principal); E87.1 Hypo-osmolality and hyponatremia; R53.83 Other fatigue
CPT/HCPCS: 36415; 80048; 85027; 84443

== ENCOUNTER → 2024-08-23 12:55 | Outpatient (BNVA) | payer MEDICARE, SELFPAY | PROVIDERS: PCP Family Medicine; Referring Provider Family Medicine; Visit Provider Student in an Organized Health Care Education/Training Program | DX: M75.101 Unspecified rotator cuff tear or rupture of right shoulder, not specified as traumatic (principal); M19.011 Primary osteoarthritis, right shoulder; E11.59 Type 2 diabetes mellitus with other circulatory complications; I10 Essential (primary) hypertension | CPT/HCPCS: 99214 ==

== ENCOUNTER 2024-09-04 00:21 | Outpatient (CLI) | payer MEDICARE, SELFPAY ==
--- NOTE | 2024-09-04 14:42 | DI.CT_ITS ---
Exam(s) CT UPPER EXTREMITY RT WO EXAM: CT UPPER EXTREMITY RT WO CLINICAL HISTORY: SURGICAL PLANNING,ROTATOR CUFF TEAR, ARTHROPATHY,M75.101,M12.811. TECHNIQUE: Imaging Protocol: Axial computed tomography images with coronal and sagittal reformatted images were created and reviewed. COMPARISON: CR XR SHOULDER RT COMPLETE 2+V from 07/14/2023 FINDINGS: Bones: There is no evidence of fracture or dislocation. Bony alignment is satisfactory. No cellulitic or osteomyelitic changes are identified. No lytic or sclerotic lesions are identified. Joints: The AC joint shows mild spurring. There is spurring at the tip of the acromion. There is mild spurring at the greater tuberosity. There is mild narrowing of the glenohumeral joint space and mild spurring at the glenoid. Soft Tissues: Normal. No significant muscle atrophy. IMPRESSION: Jbru-ep-hlvstxhu degenerative changes of the AC joint and glenohumeral joint. RADIATION DOSE DELIVERED: Total DLP Total DLP DATA REPOSITORY: All CT scans at this facility are submitted to the National Radiology Data Registry (NRDR) Dose Index Registry (DIR) with the [employer] (ACR). RADIATION OPTIMIZATION: All CT scans at this facility use at least one of these dose optimization techniques: automated exposure control; mA and/or kV adjustment per patient size (includes targeted exams where dose is matched to clinical indication); or iterative reconstruction.
== END 2024-09-04 00:41 ==
LOC: DI 00:22
PROVIDERS: PCP Family Medicine; Visit Provider Student in an Organized Health Care Education/Training Program
DX: M19.011 Primary osteoarthritis, right shoulder (principal)
CPT/HCPCS: 73200

== ENCOUNTER → 2024-09-13 08:52 | Outpatient (BNVA) | payer MEDICARE, SELFPAY | PROVIDERS: PCP Family Medicine; Referring Provider Family Medicine; Visit Provider Student in an Organized Health Care Education/Training Program | DX: M75.101 Unspecified rotator cuff tear or rupture of right shoulder, not specified as traumatic (principal); M19.011 Primary osteoarthritis, right shoulder; E11.9 Type 2 diabetes mellitus without complications | CPT/HCPCS: 99214 ==

== ENCOUNTER → 2024-10-11 08:37 | Outpatient (BNVA) | payer MEDICARE, SELFPAY | PROVIDERS: PCP Family Medicine; Referring Provider Family Medicine; Visit Provider Student in an Organized Health Care Education/Training Program | DX: M75.101 Unspecified rotator cuff tear or rupture of right shoulder, not specified as traumatic (principal); M19.011 Primary osteoarthritis, right shoulder; E11.9 Type 2 diabetes mellitus without complications | CPT/HCPCS: 99214 ==

== ENCOUNTER 2024-10-26 05:52 | Day surgery (SDC) | payer MEDICARE, SELFPAY ==
[2024-10-26] VITALS (30 sets, daily range): BP systolic 93–154; BP diastolic 24–77; PULSE 49–90; RESP 15–26; TEMP 36–36.5; O2SAT 91–100; BMI 30.9
[2024-10-26] MEDS: Lactated Ringers 1,000 ML 30 ML IV (06:50)
--- NOTE | 2024-10-26 06:59 | ANES.PREOP_ITS ---
General Info Date of Service Date Performed: 10/26/24 Height: 5 ft 3 in Weight: 79.1 kg Body Mass Index (BMI): 30.9 Surgical Procedure: Operation Date: 10/26/24 07:40 Proposed Procedure Side Surgeon p Shoulder Reverse Total Arthroplasty, Biceps Tenodesis, Distal Clavicle Excision Right Esau Walsh MD Meds Allergies and Home Medications Allergies Allergy/AdvReac Type Severity Reaction Status Date / Time No Known Allergies Allergy Verified 10/26/24 06:10 Home Medication ?Medication ?Instructions ?Recorded aspirin 81 mg tablet,delayed 81 mg PO DAILY 07/29/12 release (Aspir-) nitroglycerin 0.4 mg sublingual 0.4 mg sublingual as d irect 07/31/14 tablet blood sugar diagnostic (OneTouch #200 strips 07/03/16 Ultra Test strips) OneTouch UltraSoft Lancets #100 ea 10/18/20 (lancets) lancets 33 gauge (OneTouch Delica #100 ea 10/18/20 Lancets) blood sugar diagnostic #100 ea 08/24/22 pen needle, diabetic 31 gauge x ##200 08/24/2203/24 blood-glucose meter (OneTouch #1 ea 08/26/22 Ultra2 Meter) atorvastatin 40 mg tablet 40 mg PO DAILY #90 tab-caps 07/27/24 losartan 50 mg tablet 50 mg PO DAILY #90 tabs 0511/13 nitroglycerin 0.4 mg sublingual 0.4 mg sublingual ONCE #10 tabs 07/27/24 tablet citalopram 20 mg tablet (Celexa) 20 mg PO DAILY #90 ta b-caps 09/28/24 levothyroxine 75 mcg tablet 75 mcg PO DAILY #90 tab-ca ps 09/28/24 blood-glucose sensor (FreeStyle #1 ea 10/05/24 Mechelle 3 Plus Sensor device) zolpidem 5 mg tablet (Ambien) 5 mg PO hs prn #90 tab-c aps 10/10/24 insulin degludec 100 unit/mL (3 20 - 30 unit subcut QA M 10/24/24 mL) subcutaneous pen (Tresiba FlexTouch U-100 insulin) metformin 1,000 mg tablet 250 mg PO BID 10/24/24 naproxen 250 mg tablet 250 - 500 mg (1 - 2 x 250 mg ) PO 10/26/24 BID PRN moderate pain and swelling #20 tabs tramadol 50 mg tablet 50 mg PO Q8H PRN severe pain #12 10/26/24 tabs Current Visit Medications: Current Medications Generic Name Dose Route Start Last Admin Trade Name Myla PRN Reason Stop Dose Admin Ringer's Solution 1,000 mls @ 30 mls/hr 10/26/24 06:00 10/26/24 06:50 IV 11/24/24 23:59 30 mls/hr INFUSION TOMAS Administration Cefazolin Sodium/Dextrose 2 gm in 50 mls @ 100 mls/hr 10/26/24 06:00 Ancef Duplex IVPB 11/24/24 23:59 PREOP TOMAS Tranexamic Acid/Sodium Chloride 1,000 mg in 100 mls @ 600 mls/hr 10/26/24 06:00 IVPB 11/24/24 23:59 PREOP TOMAS IV Miscellaneous Supplies 1 each 10/26/24 06:00 Iv Access IV 11/24/24 23:59 DIRECTED TOMAS Sodium Chloride 0 ml 10/26/24 06:00 Normal Saline Flush 10 Ml Syr IV 11/24/24 23:59 PRN PRN Sodium Chloride 0 ml 10/26/24 06:00 Normal Saline 10 Ml Vial IJ 11/24/24 23:59 DIRECTED PRN Sterile Water 0 ml 10/26/24 06:00 Water,Injection,Sterile 10 Ml Vial IJ 11/24/24 23:59 DIRECTED PRN PFSH Active Problems Active Problems: Problem Status Onset Code Arthritis of right acromioclavicular joint Acute M19.011 Seborrheic keratoses Acute L82.1 Rotator cuff tear arthropathy Acute M75.100, M12.819 Arthritis of carpometacarpal (CMC) joint of right thumb Acute M18.11 Dupuytren's contracture of right hand Acute M72.0 Trigger finger, right ring finger Acute M65.341 Rotator cuff tear arthropathy of right shoulder Acute M75.101, M12.811 Hip pain, right Acute M25.551 Shoulder pain, right Acute M25.511 Sensorineural hearing loss, bilateral Acute H90.3 Hearing loss Acute H91.90 Pes anserine bursitis Acute M70.50 Cortical cataract of left eye Resolved H26.9 Nuclear sclerotic cataract of left eye Resolved H25.12 Aortic valve stenosis Acute 02/19/04 I35.0 Atrophic vaginitis Acute 11/23/13 N95.2 CAD (coronary artery disease) Acute I25.10 Diabetes mellitus Chronic 08/01/12 E11.9 Essential hypertension Acute 12/19/12 I10 Hyperlipidemia Acute 08/01/12 E78.5 Hypothyroidism Acute 11/19/09 E03.9 Increased BMI Acute R63.8 Diarrhea due to drug Acute K52.1 Depression Acute F32.9 Vaginal candidiasis Acute B37.3 Bacterial vaginosis Acute N76.0, B96.89 Greater trochanteric bursitis of both hips Acute M70.61, M70.62 Vaginal discharge Acute N89.8 Lichen sclerosus Acute L90.0 Trochanteric bursitis, right hip Acute M70.61 Osteoarthritis of right knee Acute M17.11 Medical History Medical History History of tobacco use Shoulder pain (10/25/12) left; MRI=no rotator cuff tear; AC arthritis Vaginal atrophy Hyperlipidemia Depression Benign hypertension Diabetes mellitus, type 2 Surgical History Surgical History History of bilateral ligation of fallopian tubes History of shoulder surgery Status post dilation and curettage Status post knee surgery Status post tonsillectomy and adenoidectomy shoulder surgery Ligation of fallopian tube Tonsillectomy and adenoidectomy Stent placement 11/05/16; [facility] [place]; TO LAD F/U with cardiology 12/04/19, 3 stents KNEE REPAIR (~06/2011) Injection. MINISCUS TRIM Dilation and curettage Tobacco Smoking/Tobacco Use Status: Former Tobacco Use Passive smoking exposure: No Alcohol Alcohol Intake: current Alcohol intake frequency: holidays/special occasions only Alcohol type: wine Substance Use Substance use: Never Substance use type: does not use Details: alcohol: 3 days ago Prental History History 3 Para 2 Hx # Term Pregnancies Multiple births Hx # Pregnancies Ectopic pregnancies AB induced Hx Number of Living Children AB spontaneous Vital Signs and Lab Results Vital Signs Most Recent Vital Signs in EMR: Most Recent Vital Signs Temp Pulse Resp BP Pulse Ox 36.3 C L 61 18 149/77 H 100 10/26/24 06:16 10/26/24 06:16 10/26/24 06:16 10/26/24 06:16 10/26/24 06:16 Point of Care Results Point of Care Results: Finger Stick Blood Glucose 103 10/26/24 07:21 Lab Results Complete Metabolic Panel: Hemoglobin A1c, (4.5-5.7) 6.4 % H 09/28/24, 14:1 3 Imaging and Studies Imaging and Studies Study information below may be from another EMR and interpreted by another provider. Please see original notes in EMR for more complete details. Stress Test Summary: Date of Exam: 10/07/16 Impressions: Normal study after maximal exercise without reproduction of symptoms. Summary: 1. Myocardial perfusion imaging: No myocardial perfusion defects noted. 2. The calculated left ventricular ejection fraction after stress: 50%. LV global systolic function is low normal. No left ventricular regional motion abnormality. 3. Stress ECG conclusions: Parra treadmill score: 7. This score predicts a low risk of cardiac events. 4. Stress: The target heart rate was achieved. There is a normal resting blood pressure with an appropriate response to stress. The patient experienced no chest pain during stress. Exercise capacity is above normal for age. Echocardiogram Summary: Date of Exam: 11/13/19ex: F Admission Date: 11/13/19 : 1945 Age: 74 Exam(s) a US:US echocardiogram APPROVED REPORT EXAM: Comprehensive 2D, Doppler, and color-flow Echocardiogram Patient Location: Out-Patient Link [employer] Operator: Wendy Guerrero RDCS (AE) Indications: Aortic Stenosis, CAD Other Information Study Quality: Adequate Conclusion Left Ventricle : The left ventricle is normal size. The left ventricular systolic function is normal. The left ventricular ejection fraction is within the normal range. There is normal left ventricular wall thickness. There is normal LV segmental wall motion. The left ventricular diastolic function is normal. LVEF is 54%. Right Ventricle : The right ventricle is normal size. The right ventricular systolic function is normal. The RVSP is 22.1 mmHg. Atria : The left atrium size is normal. The right atrium size is normal. Aortic Valve : Aortic valve is calcified. Aortic valve is trileaflet. There is no aortic valvular stenosis. No aortic regurgitation is present. Mitral Valve : Mild mitral annular calcification. Trace to mild mitral regurgitation. No evidence of mitral valve stenosis. Great Vessels : The aortic root is normal in size. The ascending aorta is normal in size. Aortic arch is normal in caliber. Anesthesia Assessment and Plan Anesthesia History Personal History: No History of Anesthesia Complications Family History: No Family History of Anesthesia Complications Exercise Tolerance Exercise Tolerance: Metabolic Equivalents<4 Pertinent Negatives Pertinent Negatives: No Symptoms of GERD, No Major Cardiovascular Symptoms or Complaints, No Major Pulmonary Symptoms or Complaints and No History of CVA/TIA Cardiac & Pulmonary Exam Cardiac Exam: Normal S1/S2 Heart Sounds Pulmonary Exam: Clear Bilateral Breath Sounds Implantable Cardiac Device Does patient have a Pacemaker or an ICD?: No Airway Exam Known Difficult Airway: No Mallampati Class: 2 Mouth Opening: Normal (> 3cm) Thyromental Distance: Greater than 3 cm Neck Range of Motion: Full ROM Neck Circumference: Normal Teeth Condition: Removable Dentures/Plates Upper ASA Classification ASA Score: ASA 3 Emergency Case?: No NPO Status NPO Status: NPO Clears >2 hours, Solids >8 hours Anesthesia Plan Resuscitation Status: Full Code Anesthesia Technique: General Anesthesia Airway Planned: Endotracheal Tube Pain Management: Surgeon and patient request nerve block Monitors Used: Standard Monitors
--- NOTE | 2024-10-26 07:12 | W.PM.DSUDISC ---
Date of service: 10/26/24 Discharge Plan Disposition Patient Disposition: Home Condition: Stable Discharge Details Attending Provider: Esau Walsh Primary Care Provider: Milo Elkins Home Meds and New Rx's Prescriptions: New naproxen 250 mg tablet 250 - 500 mg PO BID PRN (Reason: moderate pain and swelling) Qty: 20 0RF Rx Instructions: take with a meal tramadol 50 mg tablet 50 mg PO Q8H PRN (Reason: severe pain) Qty: 12 0RF Continued nitroglycerin 0.4 mg tablet, sublingual 0.4 mg sublingual ONCE Qty: 10 0RF Rx Instructions: As a single dose; administer 5-10 minutes before situation known to precipitate angina attack citalopram [Celexa] 20 mg tablet 20 mg PO DAILY Qty: 90 3RF levothyroxine 75 mcg tablet 75 mcg PO DAILY Qty: 90 4RF losartan 50 mg tablet 50 mg PO DAILY Qty: 90 3RF atorvastatin 40 mg tablet 40 mg PO DAILY Qty: 90 3RF aspirin [Aspir-81] 81 MG tablet,delayed release (DR/EC) 81 mg PO DAILY nitroglycerin 0.4 MG tablet, sublingual 0.4 mg Sublingual as direct (DME) OneTouch Ultra Test 1 EACH strip 1 strip Miscellaneous BID Qty: 200 Rx Instructions: DX:E11.9 on insulin ULTRA 2 (DME) lancets [OneTouch UltraSoft Lancets[place] [facility] [place] .MEDSUPPLY Qty: 100 4RF Rx Instructions: Check blood sugar daily (DME) lancets [OneTouch Delica Lancets] 33 gauge [facility] [place] See Rx Instructions .ROUTE .MEDSUPPLY Qty: 100 3RF Rx Instructions: test once/day (DME) blood sugar diagnostic Strip See Rx Instructions .ROUTE .MEDSUPPLY Qty: 100 3RF Rx Instructions: test once/day (DME) pen needle, diabetic 31 gauge x 1/3 needle 1 ndl SQ TID Qty: 200 3RF Rx Instructions: DX:250. B/D INSULIN PEN NEEDLE 31G X 3/16 test twice/day (DME) blood-glucose meter [OneTouch Ultra2 Meter] [facility] [place] [facility] [place]ructions .ROUTE .MEDSUPPLY Qty: 1 0RF Rx Instructions: test once/day (DME) FreeStyle Mechelle 3 Plus Sensor Device See Rx Instructions .Route Qty: 1 3RF Rx Instructions: As directed dx: E11.9 zolpidem [Ambien] 5 mg tablet 5 mg PO hs prn Qty: 90 1RF metformin 1,000 mg tablet 250 mg PO BID Rx Instructions: dose increase 07/27/24 insulin degludec [Tresiba FlexTouch U-100] 100 unit/mL (3 mL) insulin pen 20 - 30 unit subcut QAM Patient Comments: 25 units Discharge Instructions Additional Instructions: Surgery: Right reverse total shoulder arthroplasty (retentive liner) with biceps tenodesis and distal clavicle excision 10/26/24 Activity: Do not lift anything heavier than a coffee. You should keep your arm at your side in a relatively neutral position at all times except for gentle range of motion exercises, physical therapy, and essential activities. You should use the sling whenever you are out of the house. At home it is best to remove the sling and rest the arm on a pillow at your side or support the operative side with your other hand. A physical therapy prescription will be sent electronically to start in about 3 weeks. Standard Reverse TSA Protocol. Prescriptions: Resume home Aspirin 81 mg tomorrow Naproxen 250 mg take 1-2 every 12 hours with a meal as needed for moderate pain Tramadol 50 mg take 1 every 8 hours as needed for severe pain You may use keuv-aco-kpnutpx Tylenol (acetaminophen) as needed for mild pain. These pain medications may be taken all at once or in different combinations as needed. Also, recommend Colace (docusate) as a stool softener as surgery and pain medicine cause constipation. You may try tmjh-iqa-rqontmg diphenhydramine (Benadryl) 25-50 mg nightly as a sleep aid Dressings: Leave dressing in place until follow-up. Keep clean and dry at all times. No showers please. Follow-up: 10-[address] Walsh You may take off the leg compression stockings this evening at home. You may also leave them on a few days longer if you have a history of leg swelling or edema. Please call the office during business hours with any questions or concerns. Let us know right away if you develop any redness, drainage, fevers, chest pain, or trouble breathing. Do not drink alcohol or drive for at least 24 hours after anesthesia. Stand Alone Forms: Anesthesia Discharge Inst., Anes.Nerve Block Instructions, Farnaz Gambino (DSU) Referrals: Esau Walsh MD [ [facility] STAFF PHYSICIAN, Orthopaedic Surgical] - 11/07/24 11:15 am Discharge Orders Discharge Orders: Discharge Order (Routine); Ordered 10/26/24 Ordered By: Annia Jenkins DS: Diagnosis Discharge Diagnosis (1) Rotator cuff tear arthropathy of right shoulder: Status: Acute (2) Arthritis of right acromioclavicular joint: Status: Acute (3) Tendonitis of long head of biceps brachii of right shoulder: Status: Acute
--- NOTE | 2024-10-26 07:20 | W.PM.OP ---
Operative Note Operative Note PRE-OP DIAGNOSIS: Right: 1. Rotator cuff arthropathy 2. SLAP tear/ biceps tendinopathy 3. AC joint arthritis PROCEDURE: Right: 1. Reverse total shoulder arthroplasty, CPT # 38010 2. Open biceps tenodesis, CPT # 06776 3. Open distal clavicle excision, CPT #92300 The public health training assistant was medically required as this procedure involves retraction, protection of neurovascular structures, and manipulation of multiple instruments and implants at the same time, which cannot be done without a skilled public health training assistant. SURGEON: Esau Walsh SOFTWARE ENGINEERING SPECIALIST: Annia Jenkins ANESTHESIA TYPE: Local By Surgeon, General LMA/ETT and Primary Nerve Block Refer to Anesthesia Record ESTIMATED BLOOD LOSS: 150 COMPLICATIONS: None Patient was transported to: PACU Patient's condition: stable Implants: [employer] Alleyance shoulder system Small modular baseplate with 30 mm central screw 30, 20, and 15 mm peripheral locking screws 36 mm +4 mm glenosphere Small standard length stem +0 mm humeral shell and +4 mm retentive liner Indications: See medical record for details Findings: Significant long head biceps tendinopathy, high-grade chronic and degenerative supraspinatus and infraspinatus rotator cuff tearing, more partial subscapularis tearing, and AC joint arthritis with superior bony prominence Procedure Description: In the operating room, general anesthesia was induced. The patient was positioned beachchair on the operating room table. All bony prominences were well-padded. Preoperative antibiotics were administered. The shoulder was prepped and draped in the usual sterile fashion for shoulder arthroplasty. The correct patient, procedure, and side of the procedure were all verified prior to incision. The deltopectoral approach was preinjected with 0.25% bupivacaine containing epinephrine and taken to the anterior shoulder. Care was taken to bluntly dissect the interval between the deltoid and pectoralis major muscles and to identify the cephalic vein within its fat stripe. The vein was preserved and mobilized laterally. Subdeltoid space and conjoined tendon were freed of adhesions. The long head of the biceps tendon was identified just lateral to the lesser tuberosity. The uppermost margin of the pectoralis major tendon was released from the proximal humerus. The long head of the biceps tendon was tenodesed in situ using SutureTape in a [id number] fashion securing it superior margin the pectoralis major tendon. The biceps tendon was amputated and followed proximally to identify the rotator interval. A subscapularis tenotomy was performed taking care to release the entire tendon from superior to inferior while bringing the arm gradually into external rotation. Care was taken to avoid the axillary nerve by only working on the bone inferiorly and medially. The supraspinatus and infraspinatus were debrided to a stable posterior rotator cuff margin. Appropriate coagulation was achieved especially interiorly. The anatomic neck was cut using an oscillating saw with the humeral head bone brought back table in case there was a need for future bone grafting. The superior skin flap was then elevated and retracted over the palpable AC joint prominence. A longitudinal full-thickness approach was then carried to the distal clavicle and AC joint with these flaps retracted exposing the distal clavicle and the superior bony prominences were resected and smooth with a rongeur followed by removing about three quarters a centimeter of distal clavicle bone with a rongeur. No impinging bone was left in the distal clavicle and acromion superiorly was confirmed to be smooth. Distal clavicle attachments were preserved on the margins it was stable. It was copiously irrigated. The full-thickness superior capsule and layers were then closed securely with 0 Vicryl [id number]. The skin and subcutaneous tissues were allowed to reflect back over the AC joint. Attention was then turned to the glenoid and retractors were placed and a circumferential release performed removing soft tissue about the glenoid rim. Care was taken inferiorly to work on bone only between 5 and 7:00 o'clock and bluntly elevate tissues inferiorly. The glenoid was sized and guidepin inserted accounting for patient version and inclination. The guidepin was advanced just through the far cortex ensuring adequate central fixation length. The one step prep glenoid reamer was then used to prepare glenoid according to general magistrate specifications. The baseplate was impacted onto the glenoid surface. The central compression screw was placed. The central screw aligning checker was used to confirm the central screw was fully seated. The locking guide was then used to drill and place appropriately lengthed inferior, anterior, and posterior screws. The [id number] reamer was used to achieve adequate peripheral reaming. The glenosphere was applied with the extractor operator helper and impacted to engage the Lisa taper. It was then locked with appropriate countersinking of the setscrew. The glenosphere had good fit, appropriate positioning, and no soft tissue or bony impingement. The proximal humerus was delivered from the wound with adduction and external rotation. The humerus was sized and pin placed. Reaming and blazing were done over the pin. The stem pin punch was used through the blazer to confirm distal path and complete preparation, which required adjusting the version slightly to match the humeral canal angle. The final stem was impacted into place. Trialing was started with a +0 mm shell and liner. The shoulder was reduced and taken through range of motion. Trial components were built up to +4 mm liner to achieve excellent stability and appropriate tension on the deltoid and conjoined tendon. Trial shell and liner were removed. The final shell was impacted onto the humeral stem and final liner was clicked into place. Retentive liner was chosen due to deficient rotator cuff. The shoulder was reduced and range of motion, stability, and tension confirmed. The shoulder was copiously irrigated with Betadine and normal saline. Vancomycin powder was distributed deeply about the shoulder and through subcutaneous tissues. The deltopectoral interval was approximated with 2-0 Monocryl burying the cephalic vein. Subcutaneous tissue was irrigated then closed using 2-0 Monocryl in a buried interrupted fashion. Skin was closed using 3-0 Monocryl in a buried subcuticular fashion. Skin glue was applied to the incision. A silver impregnated bandage was placed over the incision. The extremity was placed into a shoulder immobilizer. The patient awoke from anesthesia without complication and was taken to the recovery room in stable condition. Date of Procedure: 10/26/24
--- NOTE | 2024-10-26 07:29 | W.ANESNERVE ---
Nerve Block Single Injection Procedure Date and Time Date Performed: 10/26/24 Procedure Start: 07:20 Location Where Procedure Performed Procedure Location: Day Surgery Unit Reason Performed: Postoperative Analgesia Requesting Provider: Esau Walsh Timeout Performed Timeout Performed: Yes Monitoring Used ECG, Blood Pressure, SpO2 and See EMR for corresponding vital signs Sterility Sterility: Hand Hygiene, Surgical Cap, Surgical Mask, Sterile Gloves and Chlorhexidine Sedation Given During Procedure Sedation Given (Indicate Dose Given): Precedex IV Dose:: 4mcg Patient Mental Status Patient Mental Status: Sedate with meaningful communication Nerve Block 1st Nerve Block: Laterality: Right Block Type: Interscalene Ultrasound Image Saved?: Yes Needle / Catheter Used: 100mm SonoPlex II Local Anesthetic Bolus (Indicate Dose Given): Lidocaine used for local infiltration of skin, Injected in 3-5ml increments after negative blood aspiration, Bupivacaine 0.25% Dose:: 10mL and Exparel Dose:: 10mL Additives (Indicate Dose Given): None Ultrasound: Sterile probe cover and gel used Nerve Stimulator: Supplement to Ultrasound use and No twitch or parasthesia noted < 0.5 mA Paresthesia: None Procedure Tolerated: No Complications and Patient tolerated well Procedure Outcome: Successful Performed By: Tiffany De Paz Supervised By: Crys Carrillo
[2024-10-26] MEDS: ceFAZolin 2 GM/50 ML BAG IVPB (07:42)
[2024-10-26] MEDS: TRANEXAMIC ACID/SOD. CHL. 1,000 MG/100 ML BAG 600 MG IVPB (07:54)
[2024-10-26] MEDS: Bupivacaine 0.25% Pres-Free W/EPI 30 ML VIAL (08:24)
--- NOTE | 2024-10-26 11:11 | DI.RAD_ITS ---
Exam(s) XR SHOULDER RT COMPLETE 2+V EXAM: XR SHOULDER RT COMPLETE 2+V CLINICAL HISTORY: shoulder arthritis. TECHNIQUE: 2D digital imaging was performed. Two images were obtained. AP and Y views were obtained. COMPARISON: CR XR SHOULDER RT COMPLETE 2+V from 07/14/[address] UPPER EXTREMITY RT WO from 09/04/2024 FINDINGS: BONES: The patient is now status post right reverse total shoulder arthroplasty. No fracture or dislocation. JOINTS: The orthopedic hardware is in good position. No evidence of hardware loosening. SOFT TISSUE: Normal. IMPRESSION: Status post right total reverse shoulder arthroplasty. DATA REPOSITORY: RADIATION DOSE DELIVERED:
[2024-10-26] MEDS: ceFAZolin 1 GM/50 ML BAG IVPB (11:19)
[2024-10-26] MEDS: Lactobacillus Acidophilus CAP 1 CAP PO (12:01)
--- NOTE | 2024-10-26 12:36 | W.ANESPOSTOP ---
Postoperative Evaluation Date, Time and Location Date Performed: 10/26/24 Time Performed: 12:41 Patient Location: Day Surgery Unit Vital Signs Most Recent Imported Vital Signs: Most Recent Vital Signs Temp Pulse Resp BP Pulse Ox 36.0 C L 80 18 119/46 L 95 10/26/24 12:05 10/26/24 12:05 10/26/24 12:05 10/26/24 12:05 10/26/24 12:05 Pain Score Most Recent Pain Score: Most Recent Pain Score Pain Level 2 10/26/24 12:05 Assessment Mental Status: Awake (Alert & Oriented to Patient Baseline) Airway and Respiratory Function: Patent airway with normal (patient baseline) respiratory exam Cardiovascular Function: Hemodynamically Stable Hydration Status: Adequately Hydrated Nausea & Vomiting: No Nausea or Vomiting Pain: Pain is tolerable per patient Peripheral Nerve Block: Regional nerve block not resolved at time of post operative discharge
== END 2024-10-26 14:17 | disposition home or self-care (01) ==
LOC: SUR 05:53 → DSU 05:58 → SUR 06:56
PROVIDERS: PCP Family Medicine; Visit Provider Student in an Organized Health Care Education/Training Program
PROC: (CPT 23472; principal; 2024-10-26 07:30)
DX: M75.101 Unspecified rotator cuff tear or rupture of right shoulder, not specified as traumatic (principal); M19.011 Primary osteoarthritis, right shoulder; M75.21 Bicipital tendinitis, right shoulder; G89.18 Other acute postprocedural pain
CPT/HCPCS: 23472; 23430; 23120; C1713; 64415; 82947; 73030; J0131; J0665; J0666; J0690; J1100; J1596; J2003; J2371; J2405; J2704

== ENCOUNTER 2024-11-07 11:46 | Outpatient (CLI) | payer MEDICARE, SELFPAY ==
--- NOTE | 2024-11-07 11:30 | DI.RAD_ITS ---
Exam(s) XR SHOULDER RT COMPLETE 2+V EXAM: XR SHOULDER RT COMPLETE 2+V CLINICAL HISTORY: F/U RIGHT RTSA. TECHNIQUE: 2D digital imaging was performed. COMPARISON: CR XR SHOULDER RT COMPLETE 2+V from 10/26/2024 FINDINGS: Two views There is stable position alignment of the components of the reverse prosthesis. No fracture or loosening evident. There is no gas in the soft tissues. IMPRESSION: Stable satisfactory appearance of right shoulder reverse prosthesis. DATA REPOSITORY: RADIATION DOSE DELIVERED:
== END 2024-11-07 11:47 | disposition home or self-care (01) ==
LOC: DIORS 11:46
PROVIDERS: PCP Family Medicine; Referring Provider Family Medicine; Visit Provider Student in an Organized Health Care Education/Training Program
DX: Z47.89 Encounter for other orthopedic aftercare (principal); M75.21 Bicipital tendinitis, right shoulder; M19.011 Primary osteoarthritis, right shoulder
CPT/HCPCS: 99024; 73030

== ENCOUNTER 2024-12-11 13:14 | Outpatient (CLI) | payer MEDICARE, SELFPAY ==
--- NOTE | 2024-12-11 11:26 | DI.RAD_ITS ---
Exam(s) XR HIP RT COMPLETE AP PELVIS EXAM: XR HIP RT COMPLETE AP PELVIS CLINICAL HISTORY: R hip pain. TECHNIQUE: 2D digital imaging was performed. Two views COMPARISON: CR XR HIP LT COMPLETE AP PELVIS from 08/30/2019 FINDINGS: BONES: No acute fracture is present. No bony destructive lesion is seen. JOINTS: No dislocation present. Mild bilateral hip joint space narrowing. Moderate periarticular spurring. Spurring is also noted at the greater trochanters and iliac wings. SOFT TISSUE: Vascular calcifications. IMPRESSION: [id number] degenerative changes of both hips. No acute abnormality. DATA REPOSITORY: RADIATION DOSE DELIVERED:
== END 2024-12-11 13:15 | disposition home or self-care (01) ==
LOC: DIORS 13:14
PROVIDERS: PCP Family Medicine; Referring Provider Family Medicine; Visit Provider Physician Assistant
DX: M16.11 Unilateral primary osteoarthritis, right hip (principal); M25.551 Pain in right hip
CPT/HCPCS: 20610; J1010; 73502

== ENCOUNTER 2024-12-20 13:17 | Outpatient (CLI) | payer MEDICARE, SELFPAY ==
--- NOTE | 2024-12-20 11:00 | DI.RAD_ITS ---
Exam(s) XR SHOULDER RT COMPLETE 2+V EXAM: XR SHOULDER RT COMPLETE 2+V INDICATION: post-op and fall. COMPARISON: CR XR SHOULDER RT COMPLETE 2+V from 10/26/2024 CR XR SHOULDER RT COMPLETE 2+V from 11/07/2024 TECHNIQUE: 2D digital imaging was performed. Two views. FINDINGS: There is stable alignment of the right shoulder prosthesis. No abnormal surrounding lucencies. DATA REPOSITORY: RADIATION DOSE DELIVERED:
== END 2024-12-20 13:18 | disposition home or self-care (01) ==
LOC: DIORS 13:17
PROVIDERS: PCP Family Medicine; Referring Provider Family Medicine; Visit Provider Physician Assistant
DX: M16.11 Unilateral primary osteoarthritis, right hip (principal)
CPT/HCPCS: 20611; J1010; 73030

== ENCOUNTER → 2024-12-29 09:01 | Outpatient (BNVA) | payer MEDICARE, SELFPAY | PROVIDERS: PCP Family Medicine; Referring Provider Family Medicine; Visit Provider Physician Assistant | DX: M16.11 Unilateral primary osteoarthritis, right hip (principal) | CPT/HCPCS: 20611; J1010 ==